=== PATIENT | female | born 1965 | race Caucasian/White ===

== ENCOUNTER 2018-02-24 19:33 | Emergency (ER) | payer BC, SELFPAY ==
[2018-02-24 19:34] VITALS: BP 139/85; PULSE 79; RESP 18; TEMP 36.9; O2SAT 100; BMI 19.1
--- NOTE | 2018-02-24 20:46 | US_ITS ---
STUDY: ABDOMINAL ULTRASOUND - RIGHT UPPER QUADRANT REASON FOR VISIT: Female, 52 years old. Right upper quadrant abdominal pain TECHNIQUE: Ultrasound evaluation of the right upper quadrant was performed with real-time and static pepper-scale imaging. TECHNICAL QUALITY: Adequate. COMPARISON: None. FINDINGS: Liver: The liver measures 16.7 cm. There is normal echogenicity of the liver. The bile ducts are within normal limits. There is hepatic color flow. The direction of portal flow is hepatopetal. There is no demonstrated mass lesion. Gallbladder: Normal distended gallbladder. The gallbladder wall measures 2 mm. There is a negative sonographic Negron's sign. There is no pericholecystic fluid. There are no gallstones. Common Bile Duct (C.B.D.): The common bile duct measures 2 mm. Pancreas: Normal size of the head, body and tail of the pancreas. There is normal echogenicity of the pancreas. There is no demonstrated pancreatic mass or cyst. Right Kidney: Normal size of the right kidney. The right kidney measures 10.4 x 5.3 x 3.8 cm. Normal renal cortex. The right cortex measures 1.0 cm. There is no demonstrated renal mass or cyst. There is a questionable 5 mm calculus of the mid pole of the right kidney. US/Gallbladder IMPRESSION: Questionable 5 mm calculus in the midpole of the right kidney. The remainder the study is unremarkable. Electronically Signed: Joseph Smith MD at 21:24 EDT , Service support ,
[2018-02-24 21:02] LABS: Absolute Lymphocyte Count 2.09 X10^3/ul (0.83-4.51); Absolute Neutrophil Count 3.1 X10^3/uL (2.0-7.7); Basophil# 0.02 X10^3/uL; Basophil% 0.4 % (0-1); Eosinophil# 0.08 X10^3/uL; Eosinophils% 1.4 % (0-5); Hematocrit 32.3 % (37-47); Hemoglobin 10.8 g/dl (12.0-15.0); Lymphocyte # 2.09 X10^3/ul (4.0); Lymphocyte % 37.3 % (19-41); Mean Corp Hgb Conc 33.4 g/gl (32-36); Mean Corpuscular Hgb 29.8 pg (27.0-32.0); Mean Corpuscular Volume 89.2 fL (81-99); Mean Platelet Vol. 9.5 fl (6.2-12.0); Monocyte# 0.36 X10^3/uL; Monocyte% 6.4 % (0-10); Neutrophil # 3.06 X10^3/uL (2.7-7.7); Neutrophil % 54.5 % (47-70); Platelet Count 250 K/mm3 (150-450); RBC Distribution Width CV 11.9 % (11.6-14.6); RBC Distribution Width SD 38.5 fl (35.1-43.9); Red Blood Count 3.62 M/mm3 (4.2-5.4); White Blood Count 5.6 K/mm3 (4.4-11.0)
[2018-02-24 21:10] LABS: POSITIVE COUNT NO; POSITIVE DIFFERENTIAL NO; POSITIVE MORPHOLOGY NO
[2018-02-24 21:13] LABS: AST(SGOT) 19 U/L (15-37); Alanine Aminotransfer ALT/SGPT 24 U/L (13-56); Albumin, Serum 3.9 g/dL (3.2-5.0); Alkaline Phosphatase 47 U/L (45-117); Anion Gap 8 (5-15); BUN 20 mg/dL (7-18); BUN/Creat Ratio 22.6 RATIO (10-20); Bilirubin, Direct 0.09 mg/dL (0.00-0.30); Calcium,Total 9.8 mg/dL (8.5-10.1); Chloride 104 mmol/L (98-107); Creatinine, Serum 0.89 mg/dL (0.55-1.02); EST Glomerular Filtration Rate 71 mL/min (>60); Est Glom Filt Rate - Afr Amer 86 mL/min (>60); Estimated Creatinine Clearance 62.09 ml/min; Globulin 3.7 g/dL (2.2-4.2); Glucose 90 mg/dL (74-106); Lipase 109 U/L (73-393); Potassium 3.6 mmol/L (3.5-5.1); Protein, Total 7.6 g/dL (6.4-8.2); Sodium Level 138 mmol/L (136-145)
[2018-02-24] MEDS: 0.9% Normal Saline 1,000 ML 150 ML IV (21:26)
--- NOTE | 2018-02-24 21:51 | ED.VISSUMM ---
- ER Visit Summary Date of Service: 02/24/18 Chief Complaint: Abdominal pain History of Present Illness: The patient is a 52 F who is had upper abdominal pain since December. Patient has been following with her primary care physician who initially felt that she had an ulcer. The patient initially states that she had upper abdominal pain that would improve with food. She was given Carafate by her primary care physician. After completing the course of Carafate patient states she now has pain with food. Tonight the pain was radiating into her back so she came in for evaluation. As I enter the room the patient states that she was just talking to her sister on the phone and now her abdominal pain is completely resolved. Patient states that she was at the ER in [place] over the weekend secondary to a right-sided kidney stone. She did not pass the stone but states she was told the stone went back up into the kidney. Physical Examination: Vital signs are unremarkable. Patient sitting upright in bed no acute distress. She is nontoxic appearing. Head neck examination is normal. Heart is regular rate and rhythm. Lung sounds are clear. Abdomen is soft with mild tenderness in epigastric region and in the right upper quadrant. She has no guarding or rebound. Active bowel sounds are noted throughout. Test Results: CBC reveals normal white count and differential. Hemoglobin is 10.8. Chemistry studies, liver function tests, and lipase are all normal. Right upper quadrant ultrasound shows a questionable 5 mm calculus in the midpole the right kidney. Gallbladder is unremarkable. Emergency Department Course and Treatment: I did discuss with the patient that she could still have problems with her gallbladder function. She states that her primary care physician sent a prescription into the pharmacy that she has yet to bulk picker. She described it as a liquid Band-Aid that covers the lining of the stomach. She is not currently on an antacid. She is given a prescription for Prevacid. She will verify with the pharmacist that she can take this with the prescription that her doctor called in. Patient is referred to both GI and general surgery for follow-up as I believe she needs an EGD. She may require a HIDA scan as well and this was all discussed with her. Treatment Plan: [] Disposition: Discharge Impression: Epigastric pain This note was generated with [employer] dictation software. It may contain incorrect words, spelling, and punctuation that were not noted in review of the chart prior to signing ED Disposition - Plan for ED Patient: Disposition: Home or Assisted Living Chief Complaint: Abd Pain Instructions: ED PUD Vs Gastritis Prescriptions: Lansoprazole [Prevacid] 30 mg PO DAILY #30 capsule Referrals: Martin Wiley MD [STAFF PHYSICIAN] - As Needed Jett Bruno MD [STAFF PHYSICIAN] - As Needed Laya Sequeira, [employer] [Primary Care Provider] - 1 Week
[2018-02-24 22:18] VITALS: BP 117/72; PULSE 81; RESP 16; O2SAT 100
== END 2018-02-24 22:19 | disposition home or self-care (01) ==
PROVIDERS: Emergency Provider Emergency Medicine; PCP Nurse Practitioner Family
DX: R10.13 Epigastric pain (principal); M54.9 Dorsalgia, unspecified; R11.0 Nausea; I10 Essential (primary) hypertension; K21.9 Gastro-esophageal reflux disease without esophagitis; Z87.442 Personal history of urinary calculi
CPT/HCPCS: 76705; 80048; 80076; 83690; 85025; 96360; 96361; 99283; J7030; A4216